=== PATIENT | male | born 1990 | race Caucasian/White ===

== ENCOUNTER 2021-11-26 18:31 | Emergency (ER) | payer MEDICAID ==
[~2021-11-26] VITALS: Ht 170.2 cm; Wt 68.0 kg
[2021-11-26 18:45] VITALS: BP 132/67
--- NOTE | 2021-11-26 19:02 | NUR ---
Dr. Aranda examining patient.
[2021-11-26] MEDS ORDERED: HYDROcodone/APAP 5/325 MG 1 TAB TAB PO ONE (19:10)
--- NOTE | 2021-11-26 19:31 | NUR ---
Patient taken to X-ray via wheel chair.
[2021-11-26] MEDS ORDERED: HYDROcodone/APAP 5/325 MG 1 TAB TAB ONE (20:58)
[2021-11-26 21:40] VITALS: BP 128/67
--- NOTE | 2021-11-26 21:40 | NUR ---
Patient discharged with v/s stable. Written and verbal after care instructions given and explained. Patient verbalized understanding. Ambulatory with steady gait. All questions addressed prior to discharge. Advised to follow up with PMD. Give CD for patient.
== END 2021-11-26 21:40 | disposition home or self-care (01) ==
LOC: MED 18:31
DX: S52.042A Displaced fracture of coronoid process of left ulna, initial encounter for closed fracture (principal); W18.39XA Other fall on same level, initial encounter; Y92.89 Other specified places as the place of occurrence of the external cause; Y93.89 Activity, other specified; Y99.8 Other external cause status
CPT/HCPCS: 29105; 73080; 99283